=== PATIENT | male | born 1995 | race American Indian/Alaskan Native ===

== ENCOUNTER 2020-09-15 13:09 | Emergency (ER) | payer SELFPAY ==
--- NOTE | 2020-09-15 14:03 | Event Note ---
ED Screening Note ED Screening Note: diarrhea noted all week today came down with rash on tunk and left arm also co sharp pains in arms and legs walks in [place] to get to work no one else in home has rash. hx HIV; dx 1 y ago on daily genvoya daily ID 2 m ago and everything was ok he has had this diarrhea in the past no n/v/fever/chills loose stools; no blood in it last stool yesterday psh none cig/etoh This initial assessment/diagnostic orders/clinical plan/treatment(s) is/are subject to change based on patients health status, clinical progression and re- assessment by fellow clinical providers in the ED. Further treatment and workup at subsequent clinical providers discretion. Patient/guardian urged not to elope from the ED as their condition may be serious if not clinically assessed and managed. Initial orders include:
[2020-09-15] MEDS ORDERED: dexAMETHasone 4 MG/ML VIAL IM ONE (14:29)
--- NOTE | 2020-09-15 14:29 | Emergency Department Report ---
ED Rash HPI - HPI Chief Complaint: Skin Rash Stated Complaint: PAIN IN ARMS, LEGS, AND ITCHING Time Seen by Provider: 09/15/20 14:03 Duration: Today Location: Other Suspected Cause: Other Rash Symptoms: Yes Itching, No Facial Swelling, No Tongue/Oral Swelling, No Breathing Difficulties, No Choking Sensation, No Wheezing/Dyspnea, No Peeling, No Blistering, No Fever, No Lightheaded, No Malaise, No Myalgias Severity: mild Other History: Patient is a very pleasant 24-year-old male that comes to the emergency room with complaints of rash on his torso. Patient also endorses diarrhea: However upon further probing this diarrhea is a chronic issue. Not related to the rash. The rash came up after walking in the [place] to and from work. It is a macular papular rash with no drainage. ABCs are intact. Vital signs are stable. Patient has no fever. He is ambulatory nontoxic and [id number] on arrival to ER ED Review of Systems ROS: Stated complaint: PAIN IN ARMS, LEGS, AND ITCHING Other details as noted in HPI Comment: All other systems reviewed and negative ED Past Medical Hx - Past Medical History Previous Medical History?: Yes Hx HIV: Yes - Surgical History Past Surgical History?: No - Family History Family history: no significant - Social History Smoking Status: Current Every Day Smoker Substance Use Type: None - Medications Home Medications: Home Medications Medication Instructions Recorded Confirmed Last Taken Type Cetirizine HCl [ZyrTEC] 10 mg PO DAILY #30 capsule 09/15/20 Unknown Rx methylPREDNISolone [Medrol 4MG 4 mg PO FS #1 tab.ds.pk 09/15/20 Unknown Rx DOSEPAK (21 tabs)] Rash Exam - Exam General: Vital signs noted. No distress. Alert and acting appropriately. HEENT: No Periorbital Edema, No Conjuctival Injection, No Chemosis, No Perioral Edema, No Tongue Edema, No Uvular Edema, No Compromised Airway, No Drooling Lungs: Yes Good Air Exchange (Normal Breath Sounds), No Wheezes, No Ronchi, No Stridor, No Cough, No Labored Respirations, No Retractions, No Use of Accessory Muscles, No Other Abnormal Lung Sounds Heart: Yes Regular, No Murmur Skin: Yes Maculopapular Rash Other: Positive: Abdomen Normal, Neurologic Normal, Musculoskeletal Normal ED Medical Decision Making - Medical Decision Making macularpap rash on trunk sp walking in [place] to and from work no systemic s/s pt's report of diarrhea is a/c medicated with decadron IM dc home with dc plan of care including pcp/ID follow up. Pt verbalizes understanding of dc plan of care Vital Signs 09/15/20 14:01 Temperature 98.6 F Pulse Rate 84 Respiratory 20 Rate Blood Pressure 126/66 O2 Sat by Pulse 100 Oximetry - Differential Diagnosis rash Critical care attestation.: If time is entered above; I have spent that time in minutes in the direct care of this critically ill patient, excluding procedure time. ED Disposition Clinical Impression: Rash, History of HIV infection Disposition: DC-01 TO HOME OR SELFCARE Is pt being admited?: No Does the pt Need Aspirin: No Condition: Stable Instructions: Rash, Adult, [id number] Prescriptions: methylPREDNISolone [Medrol 4MG DOSEPAK (21 tabs)] 4 mg PO FS #1 tab.ds.pk Cetirizine HCl [ZyrTEC] 10 mg PO DAILY #30 capsule Referrals: BABAK DOUGHERTY MD [Staff Physician] - 3-5 Days Forms: Work/School Release Form(ED) Time of Disposition: 14:30
[2020-09-15 14:34] VITALS: BP 126/66
== END 2020-09-15 15:36 | disposition home or self-care (01) ==
LOC: ED 13:09
DX: R21 Rash and other nonspecific skin eruption (principal); F17.200 Nicotine dependence, unspecified, uncomplicated; Z21 Asymptomatic human immunodeficiency virus [HIV] infection status; Z79.899 Other long term (current) drug therapy
CPT/HCPCS: 96372; 99282; J1100